=== PATIENT | male | born 1995 | race Caucasian/White ===

== ENCOUNTER 2021-11-24 11:26 | Emergency (ER) | payer MEDICAID, OTHER ==
[~2021-11-24] VITALS: Ht 165.1 cm; Wt 66.0 kg
[2021-11-24 11:35] VITALS: BP 118/86
[2021-11-24] MEDS ORDERED: CEPH500C2 MT (13:30)
== END 2021-11-24 19:15 | disposition home or self-care (01) ==
LOC: ER 11:26
DX: L03.031 Cellulitis of right toe (principal)
CPT/HCPCS: 99283

== ENCOUNTER 2022-09-02 20:12 | Emergency (ER) | payer MEDICAID, OTHER ==
[~2022-09-02] VITALS: Ht 165.1 cm; Wt 59.0 kg
[~2022-09-02 20:12] MED LIST: CEPH500C2 MT
[2022-09-02 21:45] VITALS: BP 124/73
[2022-09-02] MEDS ORDERED: IBUPROFEN 800MG TABLET PO ONE (21:45)
[2022-09-02] MEDS ORDERED: HYDROCODONE/ACETAMINOPHEN 10/325MG TABLET PO ONE (21:45)
[2022-09-02] MEDS ORDERED: IBUPROFEN 400MG TABLET PO NR (22:30)
[2022-09-02] MEDS ORDERED: IBUP-2030 MT (23:15)
[2022-09-02] MEDS ORDERED: TOPUD MT (23:15)
== END 2022-09-03 | disposition home or self-care (01) ==
LOC: ER 20:12
DX: S62.300A Unspecified fracture of second metacarpal bone, right hand, initial encounter for closed fracture (principal); X58.XXXA Exposure to other specified factors, initial encounter; Y93.89 Activity, other specified; Y92.89 Other specified places as the place of occurrence of the external cause; Y99.8 Other external cause status
CPT/HCPCS: 29125; 73130; 73630; 99284; Z7610